=== PATIENT | male | born 1935 | race Caucasian/White ===

== ENCOUNTER 2018-02-12 16:41 | Observation (INO) | payer MEDICARE, OTHER ==
[2018-02-12 18:04] LABS: #Eosinphils 0.4 thou/uL (0.0-0.7); #Monocytes 0.5 thou/uL (0.11-0.59); #Neutrophils 3.9 thou/uL (1.40-6.50); %Basophils 0.2 % (0.0-1.0); %Eosinophils 6.3 % (0.0-10.0); %Lymphocytes 16.7 % (21.0-51.0); %Monocytes 8.8 % (0.0-10.0); %Neutrophils 67.9 % (42.0-75.0); Hemoglobin 12.1 g/dL (14.0-18.0); Mean Corpuscular HGB CONC 33.9 g/dL (32.0-36.0); Mean Corpuscular Hemoglobin 33.4 pg (27.0-31.0); Mean Corpuscular Volume 98.4 fL (78.0-98.0); Mean Platelet Volume 8.3 fL (7.4-10.4); Platelet Count 163 thou/uL (130-400); RBC Distribution Width 11.4 % (11.5-14.5); Red Blood Cell (RBC) Count 3.63 mill/uL (4.70-6.10); White Blood Cell (WBC) Count 5.8 thou/uL (4.8-10.8)
--- NOTE | 2018-02-12 18:21 | RAD ---
CHEST ONE VIEW 02/12/18 HISTORY: Dyspnea. COMPARISON: Chest radiograph from 2003. FINDINGS: Moderate atherosclerotic plaque of the aorta. No focal air space consolidation, pneumothorax or effus ion. No acute osseous abnormality. Tendon suture anchor right humeral head. IMPRESSION: No acute intrathoracic abnormality. POS: [facility]
[2018-02-12 18:25] LABS: ALT (SGPT) 21 U/L (8-55); AST (SGOT) 23 U/L (5-34); Albumin 3.9 g/dL (3.4-4.8); Alkaline Phosphatase 130 U/L (40-150); Anion Gap 12 mmol/L (10-20); BUN (Urea Nitrogen) 15 mg/dL (8.4-25.7); Bilirubin, Total 0.5 mg/dL (0.2-1.2); CK (CPK) 181 U/L (30-200); Calc. Creatinine Clearance 0 mL/min (70-130); Calcium 9.3 mg/dL (7.8-10.44); Carbon Dioxide 24 mmol/L (23-31); Chloride 109 mmol/L (98-107); Estimated GFR-MDRD 58; Globulin 2.9 g/dL (2.4-3.5); Glucose 101 mg/dL (83-110); Protein, Total 6.8 g/dL (5.8-8.1); Sodium 141 mmol/L (136-145)
[2018-02-12 18:29] LABS: CKMB 4.7 ng/mL (0-6.6); Troponin I 0.142 ng/mL (< 0.028)
[2018-02-12] MEDS ORDERED: Loratadine 10 MG TAB PO PRN (19:14)
[2018-02-12] MEDS ORDERED: cloNIDine 0.1 MG TAB PO PRN (19:14)
[2018-02-12] MEDS ORDERED: Ondansetron HCl/PF 4 MG/2 ML Vial IVP PRN ×2 (19:14)
[2018-02-12] MEDS ORDERED: hydrALAZINE 20 MG/ML VIAL SLOW IVP PRN (19:14)
[2018-02-12] MEDS ORDERED: Acetaminophen 325 MG TAB PO PRN (19:14)
[2018-02-12] MEDS ORDERED: Diabetic Tussin 200 MG/10 ML UDCUP PO PRN (19:14)
[2018-02-12] MEDS ORDERED: Calcium Carbonate 500 MG ChewTAB PO PRN (19:14)
[2018-02-12] MEDS ORDERED: Benzonatate 100 MG CAP PO PRN (19:14)
[2018-02-12] MEDS ORDERED: Mag-Al 1200 mg/1200 mg/30 ML UDCUP PO PRN (19:14)
[2018-02-12] MEDS ORDERED: Senokot 8.6 MG TAB PO PRN ×2 (19:14)
[2018-02-12] MEDS ORDERED: traMADol HCl 50 MG TAB PO PRN (19:14)
[2018-02-12] MEDS ORDERED: Nitroglycerin 0.4 MG TAB (25 Tab Bottle) SL PRN ×2 (19:14→19:16)
[2018-02-12] MEDS ORDERED: Bisacodyl 5 MG TAB PO PRN ×2 (19:14)
[2018-02-12] MEDS ORDERED: Aspirin 325 MG TAB ONE (19:22)
[2018-02-12] MEDS ORDERED: Metoprolol Tartrate 5 MG/5 ML VIAL ONE (19:22)
--- NOTE | 2018-02-12 20:15 | HP ---
DATE OF ADMISSION: 02/12/2018 PRIMARY CARE PHYSICIAN: Bebeto Sousa M.D. PRIMARY INTER COM SERVICER: Justin Delgado M.D. CHIEF COMPLAINT: Shortness of breath and uncontrolled high blood pressure. HISTORY OF PRESENT ILLNESS: Mr. Cao is a very pleasant 82-year-old male with prior history of myoc ardial infarction, status post balloon angioplasty in 1971 who is very active and history of prostate cancer who presented to the ER with the above-mentioned complaint. History is mainly obtained by e patient himself and electronic medical records have been reviewed. Case has been discussed with [facility] ER physician, Dr Nelson. Mr. Cao reported that he has been in his usual health except for some dizzy spells over the course of last year, which was diagnosed as possibly benign positional vertigo. He reports that yesterday chico hernandez was spraying inside the house in a cupboard for ants and shortly after the ant spray, he started to feel short of breath. He started to panic and went outside and his noticed that he looked pale and was struggling to breathe. She checked his blood pressure and it got elevated from 190-200 syst olic over 160s. At that point, she called 911. The patient denies any chest discomfort or heaviness . He denies any arm or jaw claudication. He denies any paresthesias, any nausea or dizziness or pal pitations. He did feel like he was very anxious because he was having a difficult time breathing. Chico hernandez denies any other recent illnesses. Upon presentation to the emergency room, his blood pressure was 160/90, oxygen saturation 96% on room air. He was in no acute distress. His serum chemistries and CBC were rather unremarkable. His car diac enzymes were, however, in the indeterminate range and troponin of 0.142. EKG was nonspecific an d chest x-ray did not show any acute infiltrate or edema. He was given aspirin in the ER as well as metoprolol IV and is now being admitted for further workup and care. The patient reports that he had a negative chemical stress test 6 weeks ago ordered by Dr. Delgado a s an outpatient. PAST MEDICAL HISTORY: 1. Hypertension. 2. Coronary artery disease status post [place] in 1971. The patient has never had any cardiac catheteriz ation done since then. 3. History of prostate cancer, status post surgery. 4. Dyslipidemia. ALLERGIES: No known medication allergies. HOME MEDICATIONS: As follows as listed in the emergency room record, amlodipine 5 mg daily, aspirin 325 mg daily, isosorbide mononitrate 60 mg daily, atorvastatin 10 mg daily, ramipril 10 mg daily. PAST SURGICAL HISTORY: 1. Right rotator cuff repair. 2. Multiple eye surgeries. 3. Prostatectomy. 4. Balloon angioplasty for coronary artery disease in 1971. PSYCHIATRIC HISTORY: No anxiety, no depression. SOCIAL HISTORY: He is and lives with his family and is very active now. No history of drug, tobacco or alcohol abuse. FAMILY HISTORY: Significant for stomach cancer in his mother and hypertension and heart disease in h is father. REVIEW OF SYSTEMS: A 12-point review of systems is done. It is negative except for those mentioned in the history and physical. LABORATORY DATA: CBC shows hemoglobin 12.1 with macrocytosis, otherwise unremarkable. Serum industrial chemistry teacher ry shows chloride 109, CK-MB normal at 4.7, creatinine kinase normal at 181. Troponin 0.142. Chest x-ray by my review has no evidence of any acute changes. No pulmonary edema, no infiltrates. A 12-l ead EKG by my review shows normal sinus rhythm without any significant ST or T-wave changes. Heart r ate 85 beats per minute, QTc 437 milliseconds. PHYSICAL EXAMINATION: VITAL SIGNS: Most recent vital signs, blood pressure 132/72, pulse of 85, respirations 20, saturatin g 96% on room air, afebrile, temperature 98.4. GENERAL: No acute distress, awake, alert, oriented x3, appears younger than stated age, very healthy -looking male in jovial mood. HEENT: Mucous membrane is moist and pink. No oropharyngeal exudate or erythema. Head is normocepha lic, atraumatic. Pupils are equal and reactive to light and accommodation. Extraocular movement int act. NECK: Supple without any lymphadenopathy, JVD or bruit. CHEST: Clear to auscultation without any wheezing, rales or rhonchi. CARDIOVASCULAR: Rate and rhythm are regular without any murmur, rubs or gallops. ABDOMEN: Soft, nontender, nondistended with positive bowel sounds. EXTREMITIES: Showed trace pitting edema bilaterally, left more than right. NEUROLOGIC: Nonfocal. SKIN: Shows fading rash behind his ear on the right side, extending somewhat to his right cheek acco rding to the , which is new today. PSYCHIATRIC: Normal affect. IMPRESSION AND PLAN: 1. Shortness of breath. At this time, the likely scenario is inhalation of the toxic chemical when he was spraying the ant killer. This led to uncontrolled hypertension and excessive anxiety. Jose Alberto dalal, given his history of coronary artery disease and mildly elevated troponin, he will be admitted und er observation status on telemetry unit to rule out acute coronary syndrome. We will continue to dg nd serial cardiac enzymes and continue his aspirin, SHANDRA inhibitor and statin for now. He has receive d beta erlin in the form of IV metoprolol in the emergency room. We will request consultation with his pan cleaner, Dr. Delgado and obtain a transthoracic echocardiogram, specifically as he has bee n giving history of some on and off dizziness. Likelihood of acute coronary syndrome is low given hi s normal stress test about 6 weeks ago. 2. Uncontrolled hypertension, likely secondary to anxiety. His blood pressure is under much better control now. We will restart home medications and add p.r.n. antihypertensives as well and monitor. 3. Borderline elevated troponin, likely demand ischemia from shortness of breath and uncontrolled hy pertension at home. Restart home medications that are cardio prudent as above and continue to trend cardiac enzymes and perform transthoracic echocardiogram. 4. History of prostate cancer, status post prostatectomy. 5. History of hypertension. Restart home medication. 6. Dyslipidemia. Restart atorvastatin. 7. Code status: Full code. Discussed with the patient in detail. 8. Add deep venous thrombosis and gastrointestinal prophylaxis and p.r.n. medication orders. DISPOSITION: Mr. Estrella is currently being admitted under observation status for further stanislav p of isolated episode of acute shortness of breath, which has now resolved, as well as for elevation of cardiac enzymes in the indeterminate range. Further management will depend upon his clinical cour se and recommendations from Cardiology.
[2018-02-12 20:49] VITALS: BMI 27.7
[2018-02-12] MEDS: Famotidine 20 MG TAB PO SCH (21:22)
[2018-02-12] MEDS ORDERED: Ramipril 5 MG CAP PO SCH (21:30)
[2018-02-12] MEDS ORDERED: Amlodipine 5 MG TAB PO SCH (21:30)
[2018-02-12 23:03] LABS: Troponin I 0.152 ng/mL (< 0.028)
[2018-02-12] MEDS ORDERED: Fluticasone Propionate Nasal Spray 16 gm Bottle NASAL SCH (23:45)
[2018-02-13] MEDS ORDERED: Amlodipine 10 MG TAB PO SCH ×2 (01:45→21:00)
[2018-02-13 01:50] LABS: #Eosinphils 0.4 thou/uL (0.0-0.7); #Lymphocytes 1.3 thou/uL (1.20-3.40); #Monocytes 0.5 thou/uL (0.11-0.59); #Neutrophils 2.4 thou/uL (1.40-6.50); %Basophils 0.9 % (0.0-1.0); %Eosinophils 8.1 % (0.0-10.0); %Lymphocytes 27.9 % (21.0-51.0); %Monocytes 11.2 % (0.0-10.0); %Neutrophils 51.9 % (42.0-75.0); Mean Corpuscular HGB CONC 34.3 g/dL (32.0-36.0); Mean Platelet Volume 7.8 fL (7.4-10.4); Platelet Count 136 thou/uL (130-400); RBC Distribution Width 11.5 % (11.5-14.5); Red Blood Cell (RBC) Count 3.25 mill/uL (4.70-6.10); White Blood Cell (WBC) Count 4.6 thou/uL (4.8-10.8)
[2018-02-13 02:13] LABS: Troponin I 0.159 ng/mL (< 0.028)
[2018-02-13 02:17] LABS: Anion Gap 12 mmol/L (10-20); BUN (Urea Nitrogen) 14 mg/dL (8.4-25.7); Calc. Creatinine Clearance 68 mL/min (70-130); Calcium 8.9 mg/dL (7.8-10.44); Carbon Dioxide 24 mmol/L (23-31); Chloride 110 mmol/L (98-107); Estimated GFR-MDRD 71; Glucose 133 mg/dL (83-110); Potassium 3.5 mmol/L (3.5-5.1); Sodium 142 mmol/L (136-145)
[2018-02-13] MEDS ORDERED: Aspirin 325 MG TAB PO SCH (08:00)
[2018-02-13] MEDS ORDERED: Calcium Carbonate 600 MG TAB PO SCH (09:00)
[2018-02-13] MEDS ORDERED: Enoxaparin Sodium 40 MG/0.4 ML SYRINGE SC SCH (09:00)
[2018-02-13] MEDS ORDERED: Ramipril 5 MG CAP PO SCH ×2 (09:00→21:00)
[2018-02-13] MEDS ORDERED: Timolol 0.5% Ophth Soln 5 ml Bottle EA EYE SCH (09:00)
[2018-02-13] MEDS ORDERED: Fluticasone Propionate Nasal Spray 16 gm Bottle NASAL SCH (09:00)
[2018-02-13] MEDS ORDERED: Amlodipine 5 MG TAB PO SCH ×2 (09:00→21:00)
[2018-02-13] MEDS ORDERED: Cyanocobalamin (Vitamin B-12) 1,000 MCG TAB PO SCH (09:45)
[2018-02-13] MEDS ORDERED: Ubidecarenone 50 MG CAP PO SCH (10:00)
[2018-02-13] MEDS ORDERED: Ferrous Sulfate 325 MG TAB PO SCH (10:00)
[2018-02-13] MEDS ORDERED: Folic Acid 1 MG TAB PO SCH (10:00)
[2018-02-13] MEDS ORDERED: Vitamin A 10,000 UNITS CAP PO SCH (10:00)
[2018-02-13] MEDS ORDERED: Multivit, Therapeutic 1 TAB PO SCH (10:00)
[2018-02-13] MEDS ORDERED: Fish Oil 1,000 MG CAP PO SCH (10:00)
[2018-02-13] MEDS: Famotidine 20 MG TAB PO SCH (10:12)
[2018-02-13 11:45] VITALS: BP 130/67; TEMP 98.4
--- NOTE | 2018-02-13 12:01 | DIS ---
DATE OF ADMISSION: 02/12/2018 DATE OF DISCHARGE: 02/13/2018 CONDITION AT THE TIME OF DISCHARGE: Stable and improved. DISCHARGE DIAGNOSES: 1. Shortness of breath likely secondary to allergic reaction to ANT KILLER. 2. History of coronary artery disease status post [place] and balloon angioplasty in 1971. 3. Hypertension. 4. History of prostate cancer, status post prostatectomy. 5. Dyslipidemia. DISCHARGE MEDICATIONS: Remain the same as admission medication and home medications. No changes wer e made. Please see admission H and P for further details dictated by myself. PROCEDURES DONE IN THE HOSPITAL: Transthoracic echocardiogram, which shows diastolic dysfunction wit h preserved EF of 60%. INHOUSE CONSULTATIONS: Cardiology, Dr. Justin Delgado. HOSPITAL COURSE: Mr. Estrella is a very pleasant 82-year-old male with history of coronary arter y disease who is fairly healthy and has had a normal stress test 6 weeks ago as an outpatient who pre sented to hospital with acute shortness of breath happened after he was praying inside the house for ants with ant killer. He also noticed a rash behind his left ear extending to his cheek. His sympto ms were short lasting and upon presentation, he was stable other than high blood pressure. His blood pressure was as high as 200 systolic during the episode of shortness of breath. His EKG was unremar kable. He did have borderline cardiac enzyme elevation and was admitted under observation status for further evaluation and Cardiology was consulted given his history of coronary artery disease. HOSPITAL COURSE: He remained asymptomatic throughout the rest of his hospitalization. Home medicati ons were restarted including the cardio-prudent medication. Cardiology, Dr. Delgado saw him and he underwent an echocardiogram which was rather unremarkable except for diastolic dysfunction. He was c leared for discharge by Dr. Delgado at this time as his symptoms most likely are related to the inha lation of ant killer inside the closed house. His cardiac enzymes were trended and it went from 0.14 2-0.152 and then last one 0.159. He is instructed to follow with Dr. Delgado as an outpatient and r esume his home medications of SHANDRA inhibitor, nitrates, aspirin, statin, and Norvasc among others. He verbalized understanding. Discharge plan was discussed with his family as well who verbalized under standing as well. He was seen and examined prior to discharge. PHYSICAL EXAMINATION: VITAL SIGNS: This morning, temperature 98.4, pulse 81, respirations 16, saturating 94% on room air, blood pressure 130/67. GENERAL: No acute distress, awake and alert, and oriented x3. CHEST: Clear to auscultation bilaterally. Rate and rhythm is regular.
[2018-02-13] MEDS ORDERED: Atorvastatin Calcium 40 MG TAB PO SCH (21:00)
--- NOTE | 2018-02-14 07:19 | CON ---
DATE OF CONSULTATION: 02/13/2018 HISTORY OF PRESENT ILLNESS: The patient is an 82-year-old gentleman who presented with dyspnea. The patient has a previous history of coronary artery disease, and underwent a cardiac catheterization in 2002. He was found to have diffuse coronary artery disease. The patient has done very well on medical therapy. Recently, he had a PET scan which revealed him to have no evidence of significant ischemia. The patient was in his usual state of health when he ingested some toxic inhalant. The patient suddenly became short of breath. His blood pressure became elevated. The patient denied having any chest discomfort. He was brought to the hospital for further evaluation. PAST MEDICAL HISTORY: 1. Coronary artery disease. 2. Hypertension. 3. History of myocardial infarction. 4. Dyslipidemia. 5. Prostate carcinoma. PAST SURGICAL HISTORY: Rotator cuff surgery, eye surgery, prostatectomy. SOCIAL HISTORY: He is a nonsmoker. FAMILY HISTORY: Positive family history of coronary artery disease. MEDICATIONS ON ADMISSION: Imdur 60 q.a.m., ramipril 10 daily, Norvasc 10 daily , Lipitor 40 daily, aspirin 81 daily. REVIEW OF SYSTEMS: Ten-point system otherwise unremarkable. PHYSICAL EXAMINATION: GENERAL: Obese gentleman in no acute distress. VITAL SIGNS: Blood pressure 126/62. NECK: No jugular venous distention. LUNGS: Clear to auscultation. HEART: Regular rate and rhythm, normal S1, S2. ABDOMEN: Distended. EXTREMITIES: Showed trace edema. LABORATORY DATA: White blood count 4.6, hemoglobin 11.0, hematocrit 32.2, his platelets are 136. Sodium was 142, potassium 3.5, chloride 110, bicarbonate 24 , BUN 14, creatinine 1.0. Troponin 0.159. His EKG revealed him to have normal sinus rhythm with a nonspecific interventricular conduction delay. IMPRESSION: 1. Dyspnea secondary to elevated blood pressure. 2. Hypertension. 3. History of percutaneous transluminal coronary angioplasty and stent placement. 4. Dyslipidemia. This gentleman presents with acute dyspnea. His systolic blood pressure was over 200 after he had been exposed to a toxic inhalant. The patient's blood pressure has returned to normal. Cardiac enzymes reveal no evidence of a myocardial infarction. The patient's echocardiogram reveals normal left ventricular systolic function with diastolic dysfunction. The patient can be discharged. I will follow this patient as an outpatient. He needs to monitor his blood pressure very closely and need to avoid being under stressful situations as much as possible. MTDD
[2018-02-14] MEDS ORDERED: Fish Oil 1,000 MG CAP PO SCH (09:00)
[2018-02-14] MEDS ORDERED: Ubidecarenone 50 MG CAP PO SCH (09:00)
[2018-02-14] MEDS ORDERED: Vitamin A 10,000 UNITS CAP PO SCH (09:00)
[2018-02-14] MEDS ORDERED: [UNRECOGNIZED DRUG - OTHER] PO SCH (09:00)
[2018-02-14] MEDS ORDERED: GLUC SU PO SCH (09:00)
[2018-02-14] MEDS ORDERED: Folic Acid 1 MG TAB PO SCH (09:00)
[2018-02-14] MEDS ORDERED: Vit A,C & E/Lutein/Minerals Tablet PO SCH (09:00)
[2018-02-14] MEDS ORDERED: Multivit, Therapeutic 1 TAB PO SCH (09:00)
[2018-02-14] MEDS ORDERED: CHONDRO SU A PO SCH (09:00)
[2018-02-14] MEDS ORDERED: Cyanocobalamin (Vitamin B-12) 1,000 MCG TAB PO SCH (09:00)
[2018-02-14] MEDS ORDERED: Ferrous Sulfate 325 MG TAB PO SCH (09:00)
[2018-02-14] MEDS ORDERED: VIT C PO SCH (09:00)
--- NOTE | 2018-02-19 11:46 | EKG ---
Test Reason : Blood Pressure : / mmHG Vent. Rate : 083 BPM Atrial Rate : 083 BPM P-R Int : 160 ms QRS Dur : 118 ms QT Int : 416 ms P-R-T Axes : 058 044 -05 degrees QTc Int : 488 ms Normal sinus rhythm Non-specific intra-ventricular conduction delay Prolonged QT Abnormal ECG Confirmed by LUIS CUMMINS DO ([id number]), technical editor JYOTI SAMAYOA ([id number]) on 02/19/2018 11:46:01 AM Referred By: Confirmed By:LUIS CUMMINS DO
--- NOTE | 2018-02-19 11:46 | EKG ---
Test Reason : SOB Blood Pressure : / mmHG Vent. Rate : 079 BPM Atrial Rate : 079 BPM P-R Int : 160 ms QRS Dur : 124 ms QT Int : 408 ms P-R-T Axes : 064 049 003 degrees QTc Int : 467 ms Normal sinus rhythm Non-specific intra-ventricular conduction delay Borderline ECG Confirmed by LUIS CUMMINS DO ([id number]), market editor JYOTI SAMAYOA ([id number]) on 02/19/2018 11:46:03 AM Referred By: Confirmed By:LUIS CUMMINS DO
== END 2018-02-13 11:59 | disposition home or self-care (01) ==
LOC: ERS 16:41 → 2SW 19:18
PROVIDERS: ADMIT Internal Medicine; ATTEND Internal Medicine
DX: R06.02 Shortness of breath (principal); I25.10 Atherosclerotic heart disease of native coronary artery without angina pectoris; I10 Essential (primary) hypertension; E78.5 Hyperlipidemia, unspecified; I25.2 Old myocardial infarction; Z85.46 Personal history of malignant neoplasm of prostate; Z79.82 Long term (current) use of aspirin; Z79.899 Other long term (current) drug therapy
CPT/HCPCS: 71045; 80048; 80053; 82550; 82553; 84484 ×3; 85025 ×2; 93005; 93306; 94760; 96374; 97139; 99285; G0378 ×2; 36415; J1650

== ENCOUNTER 2018-06-28 12:39 | Outpatient (CLI) | payer MEDICARE, OTHER ==
--- NOTE | 2018-06-28 16:19 | MRI ---
MRI CERVICAL SPINE NONCONTRAST: 06/28/18 HISTORY: 83-year-old male with M54.12 cervical radiculopathy. COMPARISON: None available. FINDINGS: Cervical spinal cord is normal in size and signal. Vertebral body heights are maintained. Bone marrow signal is diffusely moderately heterogeneous, nonspecific. This may represent senescent marrow ogrdon es. Broad based, mostly shallow, disc osteophytic bar complexes encroach upon the anterior aspect of the spinal canal. This is greatest at C6-7, but mild at other levels. Uncinate process osteophytes en croach upon the neural foramina bilaterally at multiple levels. Mild disc space narrowing at C3-4 and C4-5 with T1 hyperintense signal probably representing calcification of the discs. Moderate to sever e disc space narrowing at C6-7 with some irregularity of the end plates. Minimal disc space narrowing at C2-3, C5-6, and C7-T1. Multilevel bilateral degenerative facet hypertrophy, mostly moderate in de gree. Possible ankylosis of right C3-4 facet joint and left C4-5 facet joint. There is abnormal signal involving the posterior half of the odontoid process, which is occupied by a n approximately 2 x 1.5 cm structure which is T1 hypointense and T2 very hypointense. The odontoid pr ocess anterior to it is thin in the AP dimension. Exact etiology is uncertain. One possibility is scl erosis and/or calcium deposition. Noncontrast CT may be better able to characterize this. C1-2: No central stenosis. C2-3: Ligamentum flavum thickening. Mild central stenosis. Mild bilateral neural foraminal stenosis. C3-4: Mild ligamentum flavum thickening. Moderate central spinal canal stenosis. Severe bilateral jens ral foraminal stenosis. C4-5: Moderate central spinal canal stenosis. Severe bilateral neural foraminal stenosis. C5-6: Mild to moderate central spinal canal stenosis. Minimal grade I anterolisthesis of C5 on C6. Se dioni right degenerative facet changes. Normal left facet joint. Severe bilateral foraminal stenosis. C6-7: Ligamentum flavum thickening. Severe central spinal canal stenosis. Severe bilateral neural for aminal stenosis. C7-T1: Mild grade I anterolisthesis of C7 on T1 due to moderate bilateral degenerative facet disease, left worse than right. Moderate to severe bilateral neural foraminal stenosis. Mild to moderate cent ral spinal canal stenosis. IMPRESSION: 1. Cervical spondylosis with multilevel degenerative disc disease and facet osteoarthrosis. 2. Severe central spinal canal stenosis at C6-7. 3. Severe neuroforaminal stenosis bilaterally at C3-4, C4-5, C5-6, and C6-7. POS: [facility]
== END 2018-06-28 12:40 | disposition home or self-care (01) ==
LOC: TBSIIMAG 12:39
PROVIDERS: ATTEND Neurological Surgery
DX: M47.22 Other spondylosis with radiculopathy, cervical region (principal); M50.10 Cervical disc disorder with radiculopathy, unspecified cervical region; M48.02 Spinal stenosis, cervical region
CPT/HCPCS: 72141

== ENCOUNTER 2018-07-28 00:31 | Outpatient (CLI) | payer MEDICARE, OTHER ==
[2018-07-28 16:56] LABS: Hemoglobin 12.8 g/dL (14.0-18.0); Mean Corpuscular HGB CONC 33.6 g/dL (32.0-36.0); Mean Corpuscular Hemoglobin 32.5 pg (27.0-31.0); Mean Corpuscular Volume 96.8 fL (78.0-98.0); Mean Platelet Volume 10.5 fL (7.4-10.4); Platelet Count 152 thou/uL (130-400); RBC Distribution Width 11.5 % (11.5-14.5); Red Blood Cell (RBC) Count 3.93 mill/uL (4.70-6.10); White Blood Cell (WBC) Count 5.8 thou/uL (4.8-10.8)
[2018-07-28 17:18] LABS: Anion Gap 13 mmol/L (10-20); BUN (Urea Nitrogen) 17 mg/dL (8.4-25.7); Calc. Creatinine Clearance 0 mL/min (70-130); Carbon Dioxide 24 mmol/L (23-31); Chloride 106 mmol/L (98-107); Estimated GFR-MDRD 70; Glucose 93 mg/dL (83-110); Sodium 139 mmol/L (136-145)
== END 2018-07-28 00:32 | disposition home or self-care (01) ==
LOC: LABBT 00:31
PROVIDERS: ATTEND Neurological Surgery
DX: Z01.818 Encounter for other preprocedural examination (principal); M54.12 Radiculopathy, cervical region
CPT/HCPCS: 80048; 85027; 93005; 93010

== ENCOUNTER 2018-08-01 05:59 | Observation (INO) | payer MEDICARE, OTHER ==
[2018-08-01] MEDS ORDERED: Sodium Chloride 0.9% 10 ML ONE (06:35)
[2018-08-01] MEDS ORDERED: Fentanyl 100 MCG/2 ML VIAL ONE ×4 (06:39→12:24)
[2018-08-01] MEDS ORDERED: Mag-Al 1200 mg/1200 mg/30 ML UDCUP PO PRN (11:56)
[2018-08-01] MEDS ORDERED: diphenhydrAMINE 25 MG CAP PO PRN (11:56)
[2018-08-01] MEDS ORDERED: HYDROcodone/Acetaminophen 10/325 mg Tablet PO PRN (11:56)
[2018-08-01] MEDS ORDERED: Morphine 4 MG/ML VIAL SLOW IVP PRN ×2 (11:56→12:00)
[2018-08-01] MEDS ORDERED: Promethazine HCl 25 MG/ML VIAL IM PRN (11:56)
[2018-08-01] MEDS ORDERED: Promethazine HCl 12.5 MG SUPP PR PRN (11:56)
[2018-08-01] MEDS ORDERED: traMADol HCl 50 MG TAB PO PRN ×2 (11:56)
[2018-08-01] MEDS ORDERED: Ondansetron PF 4 MG/2 ML Vial IVP PRN (11:56)
[2018-08-01] MEDS ORDERED: diphenhydrAMINE 50 MG/ML VIAL IVP PRN (11:56)
[2018-08-01] MEDS ORDERED: Milk Of Magnesia 30 ML UDCUP PO PRN (11:56)
[2018-08-01] MEDS ORDERED: Promethazine 25 MG TAB PO PRN (11:56)
--- NOTE | 2018-08-01 12:20 | OP ---
DATE OF PROCEDURE: 08/01/2018 RAILROAD MAINTENANCE CLERK: Rohit Crabtree PA-C PROCEDURES PERFORMED: 1. Anterior cervical diskectomy C6-C7, interbody arthrodesis. 2. Biomechanical device, local morselized autograft, demineralized bone matrix, anterior titanium instrumentation at C6-C7. DESCRIPTION OF PROCEDURE: The patient was brought to the operating room and intubated. He was positioned supine with the head in modest extension on a gel-filled donut. Incision was made in the right precervical area and dissected medial to the sternocleidomastoid muscle. We identified the anterior cervical spine, and the level was confirmed by x-ray. We debrided the anterior osteophytes, placed distraction across the disk spaces and using the operative microscope and microdissection techniques, completely decompressed the level of the dura at both sides. The bony endplates were then decorticated for the purpose of arthrodesis and appropriate-sized intervertebral biomechanical PEEK device was brought into the field and filled with demineralized bone matrix local morselized autograft, and tapped in place securely at C6-C7. Next, an anterior plate was brought into the field and secured to C6 and C7 using two 14-mm screws at each level. The wound was extensively irrigated. Maximum hemostasis was secured. The wound was closed in anatomic layers. Job ID: [id number]
[2018-08-01 12:52] VITALS: BMI 27.4
[2018-08-01] MEDS: Sodium Chloride 0.9% 1,000 ML IV SCH ×2 (13:02)
[2018-08-01] MEDS: HYDROcodone/Acetaminophen 10/325 mg Tablet PO PRN ×2 (14:36→20:46)
[2018-08-01] MEDS: CEFAZOLIN 2 GM in Premix Bag 1 BAG IVPB SCH ×2 (14:37→23:38)
[2018-08-01] MEDS ORDERED: Lidocaine 1% PF 5 ML VIAL ONE (15:24)
[2018-08-01] MEDS ORDERED: Dexamethasone 20 MG/5 ML VIAL ONE (15:24)
[2018-08-01] MEDS ORDERED: ePHEDrine 50 MG/ML VIAL ONE (15:24)
[2018-08-01] MEDS ORDERED: Glycopyrrolate 0.2 MG/ML 5 ML SYRINGE ONE (15:24)
[2018-08-01] MEDS ORDERED: PHENYLEPHRINE-NS 100 MCG/ML 10 ML SYRINGE ONE (15:24)
[2018-08-01] MEDS ORDERED: Ondansetron PF 4 MG/2 ML Vial ONE (15:24)
[2018-08-01] MEDS ORDERED: PROPOFOL 200 MG/20 ML VIAL ONE (15:24)
[2018-08-01] MEDS ORDERED: Rocuronium Bromide 10 MG/ML (10ML VIAL) ONE (15:24)
--- NOTE | 2018-08-01 17:43 | PDOC.PN ---
- Subjective Encounter Start Date: 08/01/18 Encounter Start Time: 17:20 Subjective: Consult for med mgmt s/p ACDF. Hx of CAD, HTN. States some neck stiffnes -: but tolerated po intake. No CP, SOB, fever. Voiding appropriately. -: Reviewed past hx, labs, EKGs. - Objective MAR Reviewed: Yes Vital Signs & Weight: Vital Signs (12 hours) Temp Pulse Resp BP Pulse Ox 08/01/18 15:00 98.5 F 96 18 119/62 96 08/01/18 12:40 97.8 F 86 16 152/73 H 92 L Weight Weight 186 lb Additional Labs: Laboratory Tests 06/10/12 07/28/18 07/28/18 09:12 15:05 15:05 WBC 5.8 Hgb 12.8 L Hct 38.1 L Plt Count 152 Sodium 139 Potassium 4.0 Chloride 106 Carbon Dioxide 24 Anion Gap 13 BUN 17 Est GFR (Non-Af Amer) 59 Creatinine 1.02 Estimated GFR (MDRD) 70 Glucose 93 Radiology Reviewed by me: Yes (Echo 02/15 - EF 55-60%, diast dysfxn) EKG Reviewed by me: Yes (NSR, no acute ST-T wave changes) Phys Exam - Physical Examination Constitutional: NAD HEENT: PERRLA, sclera anicteric, oral pharynx no lesions surgical dressing in place Neck: no nodes, supple Respiratory: no wheezing, no rales, no rhonchi, clear to auscultation bilateral S1, S2 with II/ KEMAL at apex Cardiovascular: RRR, no rub, gallop Gastrointestinal: soft, non-tender, no distention, positive bowel sounds Musculoskeletal: no edema, pulses present Neurological: normal sensation, moves all 4 limbs Psychiatric: A&O x 3 Skin: no rash, normal turgor, cap refill <2 seconds Dx/Plan (1) HTN (hypertension) Code(s): I10 - ESSENTIAL (PRIMARY) HYPERTENSION Status: Chronic Qualifiers: Hypertension type: essential hypertension Qualified Code(s): I10 - Essential (primary) hypertension Comment: Resume home BP regimen, serial BP monitoring, PRN Hydralazine (2) CAD (coronary artery disease) Code(s): I25.10 - ATHSCL HEART DISEASE OF [place] CORONARY ARTERY W/O ANG PCTRS Status: Chronic Comment: s/p CABG in 2013, continue supportive mgmt, hold ASA post op (3) Dyslipidemia Code(s): E78.5 - HYPERLIPIDEMIA, UNSPECIFIED Status: Chronic Comment: Continue Lipitor 40mg HS (4) S/P cervical discectomy Code(s): Z98.890 - OTHER SPECIFIED POSTPROCEDURAL STATES Status: Acute Comment: Pain control as clinically indicated - Plan continue antibiotics, PT/OT, out of bed/ambulate, DVT proph w/SCDs Stable currently -: Continue Isosorbide and Ramipril -: OOB with PT -: Pain control as clinically indicated -: Likely home in 24h * Thank you for the consult, will continue to follow with primary service
[2018-08-01] MEDS: tiZANidine HCl 4 MG TAB PO PRN (17:58)
[2018-08-01] MEDS: Timolol 0.5% Ophth Soln 5 ml Bottle EA EYE SCH (20:45)
[2018-08-01] MEDS ORDERED: Atorvastatin Calcium 40 MG TAB PO SCH (21:00)
[2018-08-01] MEDS ORDERED: Ramipril 5 MG CAP PO SCH (21:00)
[2018-08-02] MEDS: tiZANidine HCl 4 MG TAB PO PRN (01:04)
[2018-08-02] MEDS: HYDROcodone/Acetaminophen 10/325 mg Tablet PO PRN ×2 (01:04→06:32)
[2018-08-02] MEDS: Sodium Chloride 0.9% 1,000 ML IV SCH ×2 (01:44→08:24)
[2018-08-02] MEDS: Timolol 0.5% Ophth Soln 5 ml Bottle EA EYE SCH (08:20)
[2018-08-02] MEDS ORDERED: Fluticasone Propionate Nasal Spray 16 gm Bottle NASAL SCH (09:00)
[2018-08-02] MEDS ORDERED: GLUCOSAMINE COMPLEX PO SCH (09:00)
[2018-08-02] MEDS ORDERED: Vitamin A 10,000 UNITS CAP PO SCH (09:00)
[2018-08-02] MEDS ORDERED: Multivit, Therapeutic 1 TAB PO SCH (09:00)
[2018-08-02] MEDS ORDERED: Ferrous Sulfate 325 MG TAB PO SCH (09:00)
[2018-08-02] MEDS ORDERED: Calcium Carbonate 600 MG TAB PO SCH (09:00)
[2018-08-02] MEDS ORDERED: Vit A,C & E/Lutein/Minerals Tablet PO SCH (09:00)
[2018-08-02] MEDS ORDERED: Folic Acid 1 MG TAB PO SCH (09:00)
[2018-08-02] MEDS ORDERED: Ubidecarenone 50 MG CAP PO SCH (09:00)
[2018-08-02] MEDS ORDERED: Fish Oil 1,000 MG CAP PO SCH (09:00)
[2018-08-02] MEDS ORDERED: Cyanocobalamin (Vitamin B-12) 1,000 MCG TAB PO SCH (09:00)
[2018-08-02 11:20] VITALS: BP 123/68; TEMP 98.3
--- NOTE | 2018-08-02 12:59 | DIS ---
DATE OF ADMISSION: 08/01/2018 DATE OF DISCHARGE: 08/02/2018 HOSPITAL COURSE: The patient is an 83-year-old male, status post C6 to C7 ACDF for right C7 radiculopathy. Following the surgery, he was transitioned to the Med/Surg floor, where his pain has been well controlled with p.o. medications. He is tolerating regular diet, and voiding appropriately. He has been up ambulating without any difficulty throughout the hospital. He reports he has significant improvement in his prior radicular pain. He is awake, alert, in no acute distress. He has free active range of motion of all extremities. No focal motor weakness. No reflex asymmetry. Incision is dry, intact, and soft. We will plan to dismiss the patient to home. I have discussed home care precautions. The patient has been provided with instructions. Job ID: [id number]
== END 2018-08-02 12:15 | disposition home or self-care (01) ==
LOC: SDC 05:59 → SURG A 08:38
PROVIDERS: ADMIT Neurological Surgery; ATTEND Neurological Surgery
PROC: 0RG1070 Fusion of Cervical Vertebral Joint with Autologous Tissue Substitute, Anterior Approach, Anterior Column, Open Approach (ICD-10-PCS; principal; 2018-08-01)
DX: M50.123 Cervical disc disorder at C6-C7 level with radiculopathy (principal); I10 Essential (primary) hypertension; I25.10 Atherosclerotic heart disease of native coronary artery without angina pectoris; E78.5 Hyperlipidemia, unspecified; Z79.51 Long term (current) use of inhaled steroids; Z79.899 Other long term (current) drug therapy
CPT/HCPCS: 20930; 20936; 22551; 22845; 22853; 76000; 96361; 96365; 96366; 97139; C1713; C1776; G0378; J1100; J2001; J2405; J2704; J3010; J3490

== ENCOUNTER 2018-08-16 09:24 | Outpatient (CLI) | payer MEDICARE, OTHER ==
--- NOTE | 2018-08-16 10:24 | RAD ---
CERVICAL SPINE FOUR VIEWS: HISTORY: Follow up surgery on the 4th. Cervical radiculopathy. COMPARISON: None. FINDINGS: There is no prevertebral soft tissue swelling. The predental space is normal. There is an anterior fusion plate at C7-T1. No perihardware lucency. In the AP projection, there is facet hypertrophy. Cervical spine vertebral body height is maintained. There is no fracture. There is grade 1 anteroli sthesis of C5 upon C6. Moderate loss of disk space height at C4-C5 and C5-C6, IMPRESSION: Uncomplicated cervical fusion hardware. POS: [facility]
== END 2018-08-16 09:25 | disposition home or self-care (01) ==
LOC: TBSIIMAG 09:24
PROVIDERS: ATTEND Neurological Surgery
DX: M54.12 Radiculopathy, cervical region (principal); M54.2 Cervicalgia; Z98.1 Arthrodesis status
CPT/HCPCS: 72040

== ENCOUNTER 2018-09-28 13:11 | Outpatient (CLI) | payer MEDICARE, OTHER ==
--- NOTE | 2018-09-28 13:26 | RAD ---
Cervical spine 4 views 09/28/2018 COMPARISON: 08/16/2018 HISTORY: Reevaluate cervical spine following surgery FINDINGS: Open-mouth odontoid view demonstrates a stable degree of degenerative change involving the C1-2 articulation on the right. The lateral exam demonstrates anterior discectomy and fusion hardware at C6-7, stable. There is anterolisthesis at C4-5 measuring 2-3 mm and at C5-6 measuring dorothy roximately 4 mm, not significantly changed when compared to the prior examination. No significant prevertebral soft tissue swelling. The frontal imaging demonstrates significant bilateral facet and uncovertebral osteophyte formation b ilaterally, right greater than left, most prominent at the C5-6 level as before. IMPRESSION: Stable postoperative and degenerative changes of the cervical spine as detailed above.
== END 2018-09-28 13:12 | disposition home or self-care (01) ==
LOC: TBSIIMAG 13:11
PROVIDERS: ATTEND Neurological Surgery
DX: M47.22 Other spondylosis with radiculopathy, cervical region (principal); Z98.890 Other specified postprocedural states
CPT/HCPCS: 72040

== ENCOUNTER 2021-11-06 09:15 | Outpatient (CLI) | payer MEDICARE, OTHER | END 2021-11-06 09:16 | disposition home or self-care (01) | LOC: MRI 09:15 | PROVIDERS: ATTEND Internal Medicine Cardiovascular Disease | DX: I25.10 Atherosclerotic heart disease of native coronary artery without angina pectoris (principal); G93.89 Other specified disorders of brain | CPT/HCPCS: 70549; 70553 ==

== ENCOUNTER 2022-06-29 11:28 | Emergency (ER) | payer MEDICARE, OTHER ==
[2022-06-29 12:19] LABS: #Eosinphils 0.2 thou/uL (0.0-0.7); #Lymphocytes 1.3 thou/uL (1.20-3.40); #Monocytes 0.3 thou/uL (0.11-0.59); #Neutrophils 3.8 thou/uL (1.40-6.50); %Basophils 0.1 % (0.0-1.0); %Eosinophils 2.7 % (0.0-10.0); %Lymphocytes 22.7 % (21.0-51.0); %Monocytes 6.2 % (0.0-10.0); %Neutrophils 68.2 % (42.0-75.0); Hemoglobin 12.5 g/dL (14.0-18.0); Mean Corpuscular HGB CONC 33.7 g/dL (32.0-36.0); Mean Corpuscular Hemoglobin 33.9 pg (27.0-31.0); Mean Platelet Volume 8.7 fL (7.4-10.4); Platelet Count 159 10x3/uL (130-400); RBC Distribution Width 11.7 % (11.5-14.5); Red Blood Cell (RBC) Count 3.67 mill/uL (4.70-6.10); White Blood Cell (WBC) Count 5.5 10x3/uL (4.8-10.8)
[2022-06-29 12:42] LABS: ALT (SGPT) 30 U/L (8-55); AST (SGOT) 23 U/L (5-34); Albumin 3.8 g/dL (3.4-4.8); Alkaline Phosphatase 92 U/L (40-110); Anion Gap 14 mmol/L (10-20); BUN (Urea Nitrogen) 14 mg/dL (8.4-25.7); Bilirubin, Total 0.8 mg/dL (0.2-1.2); Calc. Creatinine Clearance 0 mL/min (70-130); Calcium 9.2 mg/dL (7.8-10.44); Carbon Dioxide 25 mmol/L (23-31); Chloride 106 mmol/L (98-107); Estimated GFR 64; Globulin 2.8 g/dL (2.4-3.5); Glucose 154 mg/dL (83-110); Potassium 4.5 mmol/L (3.5-5.1); Protein, Total 6.6 g/dL (5.8-8.1); Sodium 140 mmol/L (136-145)
[2022-06-29 12:59] LABS: CKMB 2.4 ng/mL (0-6.6)
[2022-06-29 15:52] LABS: Troponin I 0.198 ng/mL (< 0.028)
== END 2022-06-29 16:44 | disposition home or self-care (01) ==
LOC: ERS 11:28
DX: R55 Syncope and collapse (principal); R77.8 Other specified abnormalities of plasma proteins; E78.00 Pure hypercholesterolemia, unspecified; I10 Essential (primary) hypertension; Z79.82 Long term (current) use of aspirin; Z79.899 Other long term (current) drug therapy
CPT/HCPCS: 36415; 70450; 71045; 80053; 82553; 84484; 85025; 93005

== ENCOUNTER 2022-07-23 09:24 | Outpatient (CLI) | payer MEDICARE, OTHER | END 2022-07-23 09:25 | disposition home or self-care (01) | LOC: TBSIIMAG 09:24 | PROVIDERS: ATTEND Neurological Surgery | DX: M47.22 Other spondylosis with radiculopathy, cervical region (principal); M50.11 Cervical disc disorder with radiculopathy, high cervical region; M50.121 Cervical disc disorder at C4-C5 level with radiculopathy; M46.02 Spinal enthesopathy, cervical region; M89.38 Hypertrophy of bone, other site; Z98.890 Other specified postprocedural states | CPT/HCPCS: 72040; 72141 ==

== ENCOUNTER 2022-08-11 14:25 | Inpatient (IN) | payer MEDICARE ==
[2022-08-11] MEDS ORDERED: Amiodarone 150 MG, Admixture Fee 1 EACH in Dextrose 5% in Water 100 ML IVPB SCH (15:15)
[2022-08-11 15:25] LABS: #Eosinphils 0.2 thou/uL (0.0-0.7); #Lymphocytes 1.6 thou/uL (1.20-3.40); #Monocytes 0.4 thou/uL (0.11-0.59); #Neutrophils 3.4 thou/uL (1.40-6.50); %Basophils 0.6 % (0.0-1.0); %Eosinophils 3.9 % (0.0-10.0); %Lymphocytes 28.6 % (21.0-51.0); %Monocytes 7.6 % (0.0-10.0); %Neutrophils 59.3 % (42.0-75.0); Hemoglobin 12.8 g/dL (14.0-18.0); Mean Corpuscular HGB CONC 33.8 g/dL (32.0-36.0); Mean Corpuscular Hemoglobin 33.9 pg (27.0-31.0); Mean Platelet Volume 8.3 fL (7.4-10.4); Platelet Count 157 10x3/uL (130-400); RBC Distribution Width 11.3 % (11.5-14.5); Red Blood Cell (RBC) Count 3.79 mill/uL (4.70-6.10); White Blood Cell (WBC) Count 5.6 10x3/uL (4.8-10.8)
[2022-08-11 15:40] LABS: Anion Gap 9 mmol/L (10-20); BUN (Urea Nitrogen) 15 mg/dL (8.4-25.7); Calc. Creatinine Clearance 0 mL/min (70-130); Carbon Dioxide 29 mmol/L (23-31); Chloride 108 mmol/L (98-107); Estimated GFR 64; Glucose 120 mg/dL (83-110); Sodium 142 mmol/L (136-145)
[2022-08-11 15:45] LABS: Troponin I 0.158 ng/mL (< 0.028)
[2022-08-11 16:45] VITALS: BMI 26.2
[2022-08-11] MEDS: Amiodarone 450 MG, Admixture Fee 1 EACH in Dextrose 5% in Water 250 ML IVPB SCH (16:52)
[2022-08-11 19:00] LABS: Troponin I 0.139 ng/mL (< 0.028)
[2022-08-11] MEDS ORDERED: Famotidine 20 MG TAB PO SCH (21:00)
[2022-08-12] MEDS: Amiodarone 450 MG, Admixture Fee 1 EACH in Dextrose 5% in Water 250 ML IVPB SCH (03:59)
[2022-08-12 04:58] LABS: #Eosinphils 0.2 thou/uL (0.0-0.7); #Lymphocytes 1.4 thou/uL (1.20-3.40); #Monocytes 0.5 thou/uL (0.11-0.59); #Neutrophils 2.5 thou/uL (1.40-6.50); %Basophils 0.5 % (0.0-1.0); %Eosinophils 4.1 % (0.0-10.0); %Lymphocytes 29.8 % (21.0-51.0); %Monocytes 11.2 % (0.0-10.0); %Neutrophils 54.3 % (42.0-75.0); Hemoglobin 11.5 g/dL (14.0-18.0); Mean Corpuscular HGB CONC 33.7 g/dL (32.0-36.0); Mean Corpuscular Hemoglobin 33.5 pg (27.0-31.0); Mean Corpuscular Volume 99.5 fl (78.0-98.0); Mean Platelet Volume 9.1 fL (7.4-10.4); Platelet Count 131 10x3/uL (130-400); RBC Distribution Width 11.4 % (11.5-14.5); Red Blood Cell (RBC) Count 3.44 mill/uL (4.70-6.10); White Blood Cell (WBC) Count 4.6 10x3/uL (4.8-10.8)
[2022-08-12] MEDS: Amlodipine 10 MG TAB PO SCH (10:03)
[2022-08-12] MEDS: Aspirin 81 mg Enteric Coated Tablet PO SCH (10:03)
[2022-08-12] MEDS ORDERED: Regadenoson 0.4 MG/5 ML SYRINGE ONE (10:04)
[2022-08-12] MEDS: Ramipril 5 MG CAP PO SCH (10:04)
[2022-08-12] MEDS ORDERED: Amiodarone 200 MG TAB PO SCH ×3 (16:00→21:00)
[2022-08-12] MEDS ORDERED: Atorvastatin Calcium 40 MG TAB PO SCH (21:00)
[2022-08-13 05:28] LABS: Hemoglobin 12.2 g/dL (14.0-18.0)
[2022-08-13 06:29] LABS: Albumin 3.3 g/dL (3.4-4.8)
[2022-08-13 06:32] LABS: Protein, Total 5.7 g/dL (5.8-8.1)
[2022-08-13 06:33] LABS: Bilirubin, Total 0.6 mg/dL (0.2-1.2)
[2022-08-13 06:34] LABS: Alkaline Phosphatase 84 U/L (40-110)
[2022-08-13 06:37] LABS: ALT (SGPT) 19 U/L (8-55); AST (SGOT) 23 U/L (5-34); Bilirubin, Direct 0.3 mg/dL (0.1-0.3)
[2022-08-13] MEDS ORDERED: Lidocaine 1% (PF) 30 ML VIAL ONE (08:02)
[2022-08-13 08:34] VITALS: TEMP 98.4
[2022-08-13] MEDS: Amiodarone 200 MG TAB PO SCH ×2 (11:39→12:35)
[2022-08-13] MEDS: Ramipril 5 MG CAP PO SCH (11:40)
[2022-08-13] MEDS: Aspirin 81 mg Enteric Coated Tablet PO SCH (11:40)
[2022-08-13] MEDS: Amlodipine 10 MG TAB PO SCH (11:40)
[2022-08-13 12:14] VITALS: BP 179/81
[2022-08-27] MEDS ORDERED: Amiodarone 200 MG TAB PO SCH (21:00)
[2022-09-03] MEDS ORDERED: Amiodarone 200 MG TAB PO SCH (09:00)
== END 2022-08-13 13:20 | disposition home or self-care (01) | DRG 262 ==
LOC: 2NO 14:25
PROVIDERS: ADMIT Hospitalist; ATTEND Internal Medicine
PROC: 0JH602Z Insertion of Monitoring Device into Chest Subcutaneous Tissue and Fascia, Open Approach (ICD-10-PCS; principal; 2022-08-13)
DX: I47.1 Supraventricular tachycardia (principal); I25.10 Atherosclerotic heart disease of native coronary artery without angina pectoris; E78.5 Hyperlipidemia, unspecified; I10 Essential (primary) hypertension; G89.29 Other chronic pain; K21.9 Gastro-esophageal reflux disease without esophagitis; I35.0 Nonrheumatic aortic (valve) stenosis; Z79.899 Other long term (current) drug therapy; I25.2 Old myocardial infarction; Z95.5 Presence of coronary angioplasty implant and graft; Z98.890 Other specified postprocedural states; Z20.822 Contact with and (suspected) exposure to COVID-19
CPT/HCPCS: 33285; 36415; 78452; 80048; 80076; 84443; 84484; 85014; 85018; 85025; 93005; 93010; 93017; 93306; A9500; C1764; J0282; J2001; J2785; J7070; U0003; U0005

== ENCOUNTER 2022-11-13 12:30 | Outpatient (CLI) | payer MEDICARE ==
[~2022-11-13 12:30] MED LIST: Iopamidol-370 76% 500 ML MDV (1 ML CHARGE) ONE
== END 2022-11-13 12:31 | disposition home or self-care (01) ==
LOC: BICCT 12:30
PROVIDERS: ATTEND Psychiatry & Neurology Neurology
DX: R42 Dizziness and giddiness (principal); I87.9 Disorder of vein, unspecified
CPT/HCPCS: 70496; 70498; 82565; Q9967